=== PATIENT | female | born 1975 | race Caucasian/White ===

== ENCOUNTER 2022-01-02 05:52 | Emergency (ER) | payer MEDICAID ==
[~2022-01-02 05:52] MED LIST: PHEN-786 PO
== END 2022-01-02 06:43 | disposition left against medical advice (07) ==
LOC: ER 05:56
DX: T14.8XXA Other injury of unspecified body region, initial encounter (principal); Z53.21 Procedure and treatment not carried out due to patient leaving prior to being seen by health care provider; W54.0XXA Bitten by dog, initial encounter; Y93.9 Activity, unspecified; Y92.9 Unspecified place or not applicable; Y99.9 Unspecified external cause status

== ENCOUNTER 2022-01-27 20:31 | Emergency (ER) | payer MEDICAID | END 2022-01-27 23:02 | disposition left against medical advice (07) | LOC: ER 20:32 | DX: Z48.02 Encounter for removal of sutures (principal); Z53.21 Procedure and treatment not carried out due to patient leaving prior to being seen by health care provider ==

== ENCOUNTER 2022-02-08 18:52 | Emergency (ER) | payer MEDICAID | END 2022-02-08 20:49 | disposition left against medical advice (07) | LOC: ER 18:53 | DX: M25.569 Pain in unspecified knee (principal); Z53.21 Procedure and treatment not carried out due to patient leaving prior to being seen by health care provider ==

== ENCOUNTER 2022-10-24 12:44 | Emergency (ER) | payer MEDICAID ==
[~2022-10-24] VITALS: Ht 154.9 cm; Wt 55.0 kg
[2022-10-24 12:49] VITALS: BP 163/107; PULSE 92; RESP 18; TEMP 97.8; O2SAT 100
[2022-10-24] MEDS ORDERED: HYDR-3973 PO (15:31)
[2022-10-24] MEDS ORDERED: SULF1TAB49 PO (15:31)
[2022-10-24] MEDS ORDERED: VALA10002 PO (15:31)
[2022-10-24] MEDS ORDERED: azithromycin 250mg tablet PO ONE (15:35)
[2022-10-24] MEDS ORDERED: CefTRIAXone 1000mg IM Kit (w/lidocaine diluent) IM ONE (15:35)
== END 2022-10-24 16:22 | disposition home or self-care (01) ==
LOC: ER 12:45
DX: B00.9 Herpesviral infection, unspecified (principal); A64 Unspecified sexually transmitted disease; Z88.0 Allergy status to penicillin; Z79.899 Other long term (current) drug therapy; Z79.2 Long term (current) use of antibiotics
CPT/HCPCS: 96372; 99283; J0696

== ENCOUNTER 2024-08-12 02:23 | Emergency (ER) | payer MEDICAID ==
[~2024-08-12] VITALS: Ht 154.9 cm; Wt 45.5 kg
[~2024-08-12 02:23] MED LIST changes: +VALA10002 PO
[2024-08-12] MEDS ORDERED: SULF1TAB49 PO (03:33)
--- NOTE | 2024-08-12 03:33 | Physician Documentation ---
History of Present Illness ~ Chief Complaint: Wound Stated Complaint: WOUND CHECK Time Seen by MD: 03:27 Primary Medical Doctor: None Mode of Arrival: Ambulatory [facility] Patient presents to the emergency room with scalp wound for the past few days. In the same position that she has previously had injury secondary to being mild. No fevers. Tetanus within 5 years?: No Medication Reconciliation Allergies: Coded Allergies: Penicillins (Verified Allergy, Unknown, 08/12/24) Scheduled Phenazopyridine Hcl (Pyridium tablet), 2 TAB PO TID Valacyclovir HCl (Valtrex), 1 TAB PO Q12H Past Medical History Past Medical History: No Pertinent History Review of Systems ROS All review of systems negative except as per HPI Physical Exam Vital Signs: Temperature: 98.7, Source: Oral, Heart Rate: 103, Respiratory Rate: 16, BP: 148/74, Pulse Oximetry: 98, Weight: 45.450 Physical Exam General: Patient is awake, alert, oriented x4 in no acute distress Head: Normocephalic and atraumatic. Patient has what appears to be ulcer to her left scalp at her occiput. No fluctuance Eyes: Conjunctival normal. EOMI. PERRL. ENT: Mucous membranes moist. Neck: Supple, trachea is midline. Chest: Clear to auscultation bilaterally without rales, rhonchi, or wheezes. There is no accessory muscle use or retractions. Cardiac: RRR without murmurs, gallops, or rubs. Progress Results/Orders Results/Orders Vital Signs 08/12/24 08/12/24 02:28 02:47 Temp 98.7 Pulse 103 Resp 18 16 B/P (MAP) 148/74 Pulse Ox 98 Medical Decision Making Findings Patient presents to the emergency room with scalp wound as per [facility]. Differentials include but are not limited to abscess, cellulitis, abrasion. As it is associated with previous injuries suspect that has possibly an infectious process therefore we will cover with antibiotics. He had not feel patient requires emergent labs or imaging Departure Disposition: HOME / SELF CARE / HOMELESS Impression: Primary Impression: Wound Condition: Stable Discharge Instructions: Wound Care, Adult Referrals: NO PRIMARY CARE PROVIDER (PCP) Prescriptions Sulfamethoxazole/Trimethoprim (Bactrim Ds Tablet) 800 Mg-160 Mg Tablet 1 TAB PO Q12H for 10 Days, #20 TAB Prov: EREN GREER MD 08/12/24 Education Educated: Patient Educated regarding: diagnosis, treatment, need for follow up Signature Scribe Signature: No scribe Attestation: The note accurately reflects work and decisions made by me.Eren Greer MD 08/12/24 03:33 EREN GREER MD Aug 12, 2024 03:33
[2024-08-12] MEDS: sulfamethoxazole/trimethoprim DS (800/160mg) tablet PO ONE (03:45)
[2024-08-12 03:51] VITALS: BP 132/80; PULSE 89; RESP 18; TEMP 97.9; O2SAT 99
== END 2024-08-12 04:15 | disposition home or self-care (01) ==
LOC: ER 02:24
DX: S00.00XA Unspecified superficial injury of scalp, initial encounter (principal); Z88.0 Allergy status to penicillin; Z79.899 Other long term (current) drug therapy; X58.XXXA Exposure to other specified factors, initial encounter; Y93.89 Activity, other specified; Y92.89 Other specified places as the place of occurrence of the external cause; Y99.8 Other external cause status
CPT/HCPCS: 99283

== ENCOUNTER 2024-09-06 22:24 | Emergency (ER) | payer MEDICAID ==
[~2024-09-06] VITALS: Ht 157.5 cm; Wt 48.0 kg
[2024-09-06 22:31] VITALS: BP 126/67; PULSE 120; TEMP 98; O2SAT 98
--- NOTE | 2024-09-06 23:01 | Physician Documentation ---
History of Present Illness ~ Chief Complaint: Cold, cough & congestion Stated Complaint: NAUSEA VOMITING Time Seen by MD: 22:57 Primary Medical Doctor: None HPI Patient presents to the emergency room with nausea vomiting and diarrhea. Onset this evening. Received Zofran EN route by EMS with positive response. Patient endorses methamphetamine abuse. Endorses abdominal pain. Medication Reconciliation Allergies: Coded Allergies: Penicillins (Verified Allergy, Unknown, 08/12/24) Scheduled Phenazopyridine Hcl (Pyridium tablet), 2 TAB PO TID Valacyclovir HCl (Valtrex), 1 TAB PO Q12H Past Medical History Past Medical History: No Pertinent History Review of Systems ROS All review of systems negative except as per HPI Physical Exam Vital Signs: Temperature: 98.0, Source: Oral, Heart Rate: 120, Respiratory Rate: 18, BP: 126/67, Pulse Oximetry: 98, Weight: 48.000 Physical Exam General: Patient is awake, alert, oriented x4 in mild distress Head: Normocephalic and atraumatic. Eyes: Conjunctival normal. EOMI. PERRL. ENT: Mucous membranes moist. Neck: Supple, trachea is midline. Chest: Clear to auscultation bilaterally without rales, rhonchi, or wheezes. There is no accessory muscle use or retractions. Tachypneic Cardiac: Tachycardic and regular without murmurs, gallops, or rubs. Abd: Soft, nondistended, diffuse abdominal tenderness without peritonitis Progress Results/Orders Results/Orders Orders - EREN GREER MD Urinalysis (09/06/24 23:06) Hcg, Ur Ql (09/06/24 23:06) Drug Screen, Urine (09/06/24 23:06) Normal Saline 1000ml (Sodium Chloride 10 (09/06/24 23:10) Completed Orders - EREN GREER MD Cbc/Diff (09/06/24 23:06) Lipase (09/06/24 23:06) Hs Troponin I W Calculations (09/06/24 23:06) CMP (09/06/24 23:06) Ondansetron Inj. (Zofran 4mg/2ml Vial) (09/06/24 23:10) Acetaminophen 1,000mg/100ml Iv (Ofirmev (09/06/24 23:10) Loperamide Capsule (Imodium Capsule) (09/06/24 23:10) Procalcitonin (09/06/24 23:10) Potassium Cl Sr Tablet (K-Dur Tablet) (09/06/24 23:47) Medications Received in ER Medications (Trade) Dose Ordered Sig/Blair Route PRN Reason Start Time Stop Time Status Last Admin Dose Admin Sodium Chloride 1,000 ml @ 1,000 mls/hr ONCE ONCE IV 09/06/24 23:10 09/07/24 00:09 09/06/24 23:22 1,000 MLS/HR (Zofran 4mg/2ml vial) 4 mg ONCE ONCE IV 09/06/24 23:10 09/06/24 23:11 DC 09/06/24 23:22 4 MG Acetaminophen 100 ml @ 400 mls/hr ONCE ONCE IV 09/06/24 23:10 09/06/24 23:24 DC 09/06/24 23:21 400 MLS/HR (Imodium capsule) 4 mg ONCE ONCE PO 09/06/24 23:10 09/06/24 23:11 DC 09/06/24 23:22 4 MG Vital Signs 09/06/24 09/06/24 22:31 23:28 Temp 98.0 Pulse 120 Resp 18 18 B/P (MAP) 126/67 Pulse Ox 98 Laboratory Tests Test 09/06/24 23:18 White Blood Count 3.3 L Red Blood Count 4.37 Hemoglobin 12.7 Hematocrit 38.4 Mean Corpuscular Volume 87.7 Mean Corpuscular Hemoglobin 29.0 Mean Corpuscular Hemoglobin Concent 33.1 Red Cell Distribution Width 14.0 Platelet Count 186 Mean Platelet Volume 7.5 Neutrophils (%) (Auto) 94.1 H Lymphocytes (%) (Auto) 4.7 L Monocytes (%) (Auto) 0.6 L Eosinophils (%) (Auto) 0.3 Basophils (%) (Auto) 0.3 Neutrophils # (Auto) 3.1 Lymphocytes # (Auto) 0.2 L Monocytes # (Auto) 0.0 Eosinophils # (Auto) 0.0 Basophils # (Auto) 0.0 CBC Comment Sodium Level 140 Potassium Level 3.0 *L Chloride Level 106 Carbon Dioxide Level 20.4 L Anion Gap 14 Blood Urea Nitrogen 18 Creatinine 1.25 H Estimated GFR/1.73 m2 46 BUN/Creatinine Ratio 14.4 Glucose Level 111 H Calcium Level 7.5 L Total Bilirubin 0.4 Aspartate Amino Transf (AST/SGOT) 33 Alanine Aminotransferase (ALT/SGPT) 32 Alkaline Phosphatase 95 Troponin I High Sensitivity 4 Total Protein 6.4 Albumin 3.2 L Globulin 3.2 Albumin/Globulin Ratio 1.0 L Lipase 25 Procalcitonin 7.87 H Chemistry Comments Medical Decision Making Findings Patient presents to the emergency room with nausea vomiting and diarrhea. Differentials include but are not limited to food poisoning, viral gastroenteritis, electrolyte disturbances, dehydration therefore emergent labs ordered which were reassuring. Noted hypokalemia which has been replenished. She is responding to therapy that has feeling much better. I do not feel CT scan is necessary. Departure Disposition: HOME / SELF CARE / HOMELESS Impression: Primary Impression: Gastroenteritis Condition: Improved Discharge Instructions: Viral Gastroenteritis, Adult, [id number] Referrals: NO PRIMARY CARE PROVIDER (PCP) Prescriptions Loperamide Hcl (Loperamide) 2 Mg Capsule 2 CAP PO Q6H for loose stool for 5 Days, #40 CAP 0 Refills Prov: EREN GREER MD 09/07/24 Ondansetron 8mg ODT (Ondansetron Odt) 8 Mg Tab.rapdis 1 TAB PO Q6H for nausea/vomiting for 3 Days, #12 TAB 0 Refills Prov: EREN GREER MD 09/07/24 Education Educated: Patient Educated regarding: diagnosis, treatment Signature Scribe Signature: No scribe Attestation: The note accurately reflects work and decisions made by me.Eren Greer MD 09/07/24 00:07 EREN GREER MD Sep 06, 2024 23:01
[2024-09-06] MEDS: acetaminophen 1,000mg/100ml IV 100 ML IV ONE (23:21)
[2024-09-06] MEDS: ondansetron/PF 4mg/2ml inj IV ONE (23:22)
[2024-09-06] MEDS: normal saline 1000ml 1,000 ML IV ONE (23:22)
[2024-09-06] MEDS: loperamide 2mg capsule PO ONE (23:22)
[2024-09-06 23:27] LABS: MEAN PLATELET VOLUME 7.5 FL (7.4-10.4); RED CELL DISTRIBUTION WIDTH 14.0 % (11.5-14.5)
[2024-09-06 23:28] VITALS: RESP 18
[2024-09-06 23:42] LABS: CREATININE 1.25 MG/DL (0.40-0.90); TOTAL CARBON DIOXIDE 20.4 MMOL/L (24-32); eCRCL 42 ML/MIN; eGFR 46 ML/MIN
[2024-09-07] MEDS ORDERED: ONDA-245 PO (00:07)
[2024-09-07] MEDS ORDERED: LOPE2CAP PO (00:07)
[2024-09-07] MEDS: potassium Cl 20 mEq SR tablet PO STA (00:22)
== END 2024-09-07 00:24 | disposition home or self-care (01) ==
LOC: ER 22:25
DX: K52.9 Noninfective gastroenteritis and colitis, unspecified (principal); F15.10 Other stimulant abuse, uncomplicated; Z88.0 Allergy status to penicillin
CPT/HCPCS: 36415; 80053; 83690; 84145; 84484; 85025; 96361; 96374; 96375; 99284; J0131; J2405; J7030

== ENCOUNTER 2025-02-18 11:55 | Emergency (ER) | payer MEDICAID ==
[~2025-02-18] VITALS: Ht 154.9 cm; Wt 53.1 kg
[~2025-02-18 11:55] MED LIST changes: +LOPE2CAP PO; +ONDA-245 PO
[2025-02-18 11:59] VITALS: TEMP 97.8
[2025-02-18 12:20] LABS: LEUKOCYTE ESTERASE ,URINE MODERATE (Neg); NITRITES, URINE NEGATIVE (Neg); OCCULT BLOOD,URINE NEGATIVE (Neg)
[2025-02-18 12:21] LABS: UA COLLECTION TYPE CLN CATCH MIDSTREAM
[2025-02-18 12:28] LABS: MUCUS STRANDS NONE SEEN /LPF (Neg); SQUAMOUS EPITHELIAL CELL,UR MODERATE /LPF (FEW)
[2025-02-18 13:03] LABS: URINE HCG NEGATIVE (NEG)
[2025-02-18] MEDS: DOXYCYCLINE 100MG CAPSULE PO STA (13:37)
[2025-02-18] MEDS: CefTRIAXone 500MG IM Kit w/LIDOcaine IM ONE (13:38)
[2025-02-18] MEDS ORDERED: DOXY-460 PO (13:44)
--- NOTE | 2025-02-18 13:44 | Physician Documentation ---
History of Present Illness ~ Chief Complaint: Vaginal pain Stated Complaint: MULTIPLE MEDICAL COMPLAINTS Time Seen by MD: 12:27 OK to notify your PCP?: Yes Primary Medical Doctor: None Source: patient Mode of Arrival: POV Exam Limitations: no limitations HPI Patient reports having vaginal pain and green vaginal discharge, foul odor and burning with urination for the past week. She reports that she may have been exposed to an STI. Denies any nausea, vomiting, diarrhea or constipation. Medication Reconciliation Allergies: Coded Allergies: Penicillins (Verified Allergy, Unknown, 02/18/25) codeine (Verified Allergy, Unknown, 02/18/25) Scheduled Doxycycline Monohydrate (Doxycycline Monohydrate), 1 CAP PO Q12H Loperamide Hcl (Loperamide), 2 CAP PO Q6H Nitrofurantoin Monohyd/M-Cryst (Macrobid 100 mg Capsule), 1 CAP PO Q12H Ondansetron 8mg ODT (Ondansetron Odt), 1 TAB PO Q6H Phenazopyridine Hcl (Pyridium tablet), 2 TAB PO TID Valacyclovir HCl (Valtrex), 1 TAB PO Q12H Past Medical History Past Medical History: No Pertinent History Physical Exam Vital Signs: RN Vital Signs have been reviewed: Yes, Temperature: 97.8, Source: Temporal, Heart Rate: 96, Respiratory Rate: 18, BP: 145/96, Pulse Oximetry: 100, Weight: 53.100 Oxygen Flow Rate: 0 Pulse Oximetry Reflects: adequate oxygenation Physical Exam General: Alert, no apparent distress. HEENT: PERRL, EOMI, no injection, moist mucous membranes. Neck: Full range of motion. Respiratory: Lungs clear, no respiratory distress. Chest: No accessory muscle use. Cardiovascular: Regular rate and rhythm, no murmurs. Gastrointestinal: Soft, nontender, nondistended. Bowels sounds present. Back: No CVA tenderness Extremities: Normal range of motion, no deformity. Neurologic: Oriented x4. Psychiatric: Normal mood and affect. Skin: Normal color, warm and dry. No edema, no ecchymosis. Progress Results/Orders Reviewed/noted all lab results: Yes Results/Orders Orders - MIRIAM AGUILAR Chlam/Gc Amp Ur (02/18/25 12:49) Completed Orders - MIRIAM AGUILAR Hcg, Ur Ql (02/18/25 12:49) Ceftriaxone 500 Im W/Lidocaine (Rocephin (02/18/25 13:25) Doxycycline 100mg Capsule (Vibramycin 10 (02/18/25 13:22) Medications Received in ER Medications (Trade) Dose Ordered Sig/Blair Route PRN Reason Start Time Stop Time Status Last Admin Dose Admin (Rocephin 500MG IM kit (w/1% LIDOcaine)) 500 mg ONCE ONCE IM 02/18/25 13:25 02/18/25 13:26 DC 02/18/25 13:38 500 MG (VIBRAMYCIN 100mg capsule) 100 mg ONCE STAT PO 02/18/25 13:22 02/18/25 13:25 DC 02/18/25 13:37 100 MG Vital Signs 02/18/25 02/18/25 11:59 13:50 Temp 97.8 Pulse 96 65 Resp 18 16 B/P (MAP) 145/96 132/77 Pulse Ox 100 98 O2 Flow Rate 0 Laboratory Tests Test 02/18/25 12:03 Urine Specimen Description Cln catch midstream Urine Color Yellow Urine Clarity Slightly cloudy Urine pH 6.0 Urine Specific [place] 1.025 Urine Protein Negative Urine Glucose (UA) Negative Urine Ketones Trace H Urine Occult Blood Negative Urine Nitrite Negative Urine Bilirubin Negative Urine Urobilinogen 0.2 Urine Leukocyte Esterase Moderate H Urine RBC None seen Urine WBC 10-20 H Urine Squamous Epithelial Cells Moderate Urine Bacteria Few Urine Mucus None seen Urine Trichomonas Few Urine Culture Indicated Indicated Volume Urine Centrifuged 10 ml Urine HCG, Qualitative Negative Urine Comment Microbiology Date/Time Source Procedure Growth Status 02/18/25 12:28 Urine Clean Catch Midstream Urine Culture - Preliminary Culture received. Resulted Medical Decision Making Additional information obtaine: old records Findings Patient reports that she may have been exposed to a STI. She is having both vaginal symptoms as well as urinary symptoms. Her urinalysis is positive for a UTI so I treated this with Macrobid. Due to the description of her vaginal discharge we ordered urine gonorrhea and chlamydia testing but this is to be sent for culture and results are not readily available. I treated her prophylactically with Rocephin injection as well as prescription for doxycycline. Urinary Diff Dx:Considerations: Include: Pyelonephritis, Urolithiasis, Urinary retention, UTI, Vaginitis Genital Diff Dx:Considerations: Include: Other Departure Disposition: 01 HOME / SELF CARE / HOMELESS Impression: Primary Impression: Sexually transmitted disease Condition: Stable Discharge Instructions: Vaginitis Additional Instructions: Drink plenty of fluids. Please return to the emergency department if you develop any new or concerning symptoms such as severe nausea and vomiting and unable to keep liquids down, if you develop severe back/flank or stomach pain, or if your symptoms are not clearly improving at home. Some people with this infection are sent home on a medication to numb the urinary tract. If you were sent home on this medication, do not be alarmed if your urine turns dark orange or reddish in color, this is a safe side effect of this medication. Referrals: NO PRIMARY CARE PROVIDER (PCP) Prescriptions Nitrofurantoin Monohyd/M-Cryst (Macrobid 100 mg Capsule) 100 Mg Capsule 1 CAP PO Q12H for 7 Days, #14 CAP 0 Refills Prov: MIRIAM AGUILAR 02/18/25 Doxycycline Monohydrate (Doxycycline Monohydrate) 100 Mg Capsule 1 CAP PO Q12H for 7 Days, #14 CAP Prov: MIRIAM AGUILAR 02/18/25 Education Educated: Patient Educated regarding: diagnosis, treatment, prognosis, need for follow up Additional Comment Medical Screen Exam This patient recieved a medical screening examination. After reviewing the individual's medical complaints with presenting symptoms and performing an appropriate physical examination, it was determined that no immediate life- threatening emergency medical condition is present. This individual is also not a women having contractions. Signature Scribe Signature: . Attestation: Scribed for Miriam Aguilar by Miriam Roque NP . 02/18/25 18:08 Parts of this note were created using [employer] voice recognition software program. While efforts were made to correct any mistakes made by this voice recognition software program, nonsensical phrases may remain in this note. In addition, there may be errors and syntax, grammar, content and spelling. MIRIAM AGUILAR Feb 18, 2025 13:44
[2025-02-18] MEDS ORDERED: NITR100C6 PO (13:47)
[2025-02-18 13:50] VITALS: BP 132/77; PULSE 65; RESP 16; O2SAT 98
== END 2025-02-18 13:51 | disposition home or self-care (01) ==
LOC: ER 11:56
DX: A64 Unspecified sexually transmitted disease (principal); Z88.0 Allergy status to penicillin; Z88.5 Allergy status to narcotic agent
CPT/HCPCS: 36415; 81001; 81025; 87088; 87491; 87591; 96372; 99283; J0696

== ENCOUNTER 2025-02-22 10:18 | Emergency (ER) | payer MEDICAID ==
[~2025-02-22] VITALS: Ht 154.9 cm; Wt 52.3 kg
[~2025-02-22 10:18] MED LIST changes: +DOXY-460 PO; +NITR100C6 PO
[2025-02-22 10:24] VITALS: BP 144/99; PULSE 96; RESP 18; TEMP 98.6; O2SAT 100
== END 2025-02-22 14:46 | disposition left against medical advice (07) ==
LOC: ER 10:18
DX: H53.8 Other visual disturbances (principal); Z88.0 Allergy status to penicillin; Z88.5 Allergy status to narcotic agent; Z53.21 Procedure and treatment not carried out due to patient leaving prior to being seen by health care provider
CPT/HCPCS: 99281